=== PATIENT | male | born 1970 | race Asian ===

== ENCOUNTER 2021-03-04 12:53 | Emergency (ER) | payer OTHER ==
[~2021-03-04] VITALS: Ht 172.7 cm; Wt 90.7 kg
[2021-03-04 13:04] VITALS: BP 133/104
[2021-03-04] MEDS ORDERED: DICYCLOMINE HCL LIQUID 20 MG, ALUMINUM HYD/MAG/SIMETHICONE 30 ML, LIDOCAINE VISCOUS 2% ... PO ONE ×3 (14:30)
[2021-03-04] MEDS ORDERED: KETOROLAC 30 MG/ML VIAL IM ONE (14:30)
[2021-03-04] MEDS ORDERED: SODIUM PHOSPHATE 118 ML ENEM RC ONE (14:30)
[2021-03-04] MEDS ORDERED: MAGNESIUM CITRATE 300 ML BTL PO ONE (14:50)
[2021-03-04 14:56] VITALS: BP 133/104
--- NOTE | 2021-03-04 15:07 | NUR ---
50/M PRESENTS TO ED WITH C/O OF CONSTIPATION X FEW MONTHS. PT STATES THAT FEW STOOLS HAVE BEEN HAPPENING AND THEY ARE HARD AND SMALL, COMPLAINS OF ABDOMINAL PAIN FROM PRESSURE. PT STATES THAT HE HAS BEEN HAVING THIS ISSUE DUE TO IBS AND IS WAITING TO SEE GI SPECIALIST.
--- NOTE | 2021-03-04 15:08 | NUR ---
Patient discharged with v/s stable. Written and verbal after care instructions given and explained. Patient verbalized understanding. Ambulatory with steady gait. All questions addressed prior to discharge. Advised to follow up with PMD.
== END 2021-03-04 15:08 | disposition home or self-care (01) ==
LOC: MED 12:53
DX: K59.00 Constipation, unspecified (principal)
CPT/HCPCS: 74018; 81002; 99283; J1885

== ENCOUNTER 2023-07-27 12:44 | Emergency (ER) | payer OTHER ==
[~2023-07-27] VITALS: Ht 172.7 cm; Wt 89.4 kg
[2023-07-27 13:10] VITALS: BP 163/108; PULSE 75; RESP 18; TEMP 97.9; O2SAT 100
[2023-07-27] MEDS ORDERED: LORATADINE 10 MG TAB PO ONE (16:15)
[2023-07-27] MEDS ORDERED: CEPH-588 PO (18:19)
[2023-07-27 18:26] VITALS: BP 163/108; PULSE 75; RESP 18; TEMP 97.9; O2SAT 100
[2023-07-27 18:38] LABS: APPEARANCE,URINE CLEAR (CLEAR); BILIRUBIN,URINE NEGATIVE (NEGATIVE); BLOOD, URINE TRACE-I (NEGATIVE); COLOR,URINE YELLOW (YELLOW); LEUKOCYTE ESTERASE ,URINE NEGATIVE (NEGATIVE); NITRITE, URINE NEGATIVE (NEGATIVE); PROTEIN,URINE NEGATIVE (NEGATIVE); UGLUCOSE NEGATIVE (NEGATIVE); UROBILINOGEN,URINE 0.2 EU/dL (0.2 - 1)
[2023-07-27 19:18] LABS: BACTERIA,URINE FEW /HPF (None Seen); RBC,URINE 0-5 /HPF (0-5); SQUAMOUS EPITHELIAL CELL,UR None Seen /LPF (0-3 (FEW))
== END 2023-07-27 18:26 | disposition home or self-care (01) ==
LOC: MED 12:44
DX: L50.9 Urticaria, unspecified (principal); N39.0 Urinary tract infection, site not specified; R33.9 Retention of urine, unspecified; I10 Essential (primary) hypertension; Z79.2 Long term (current) use of antibiotics
CPT/HCPCS: 81001; 87086; 99283